=== PATIENT | female | born 1965 | race Caucasian/White ===

== ENCOUNTER 2019-02-09 19:30 | Emergency (ER) | payer OTHER ==
[~2019-02-09] VITALS: Ht 162.6 cm; Wt 75.7 kg
--- NOTE | 2019-02-09 19:58 | NUR ---
[employer] WHEEL SCREW HOLE: Patient to room from lobby at this time.
--- NOTE | 2019-02-09 20:28 | NUR ---
Patient into room, attached to blood pressure and spo2 monitor. Patient reports pain is steadily low in the 2/10 numerical scale range. Answers questions calmly and appropriately. Reports no previous medical issues including anything cardiac in nature. No further signs of SD, no diaphoresis, pain not radiating, no sense of impending doom. Blood pressures wnl and HR 60's. Awaiting orders.
--- NOTE | 2019-02-09 21:27 | NUR ---
RN to bedside, educated on lab results especially the purpose and physiology of troponin. Verbalized understanding. Awaiting phlebotomy and results.
[2019-02-09 21:32] LABS: BASOPHILS # (AUTO) 0.07 x10^3/uL (0-0.1); BASOPHILS % (AUTO) 1 % (0-1); EOSINOPHILS % (AUTO) 1 % (1-7); LYMPHOCYTES # (AUTO) 2.19 x10^3/uL (1-3.4); LYMPHOCYTES % (AUTO) 24 % (22-44); MD NO; MEAN CORPUSCULAR HEMOGLOBIN 30.9 pg (27.0-34.8); MEAN CORPUSCULAR HGB CONC 32.9 g/dL (32.4-35.8); MEAN CORPUSCULAR VOLUME 93.9 fL (80-100); MEAN PLATELET VOLUME 7.9 fL (7.4-10.4); MONOCYTES # (AUTO) 0.58 x10^3/uL (0.2-0.8); MONOCYTES % (AUTO) 6 % (2-9); NEUTROPHILS # (AUTO) 6.15 x10^3/uL (1.8-6.8); NEUTROPHILS % (AUTO) 68 % (42-75); PLATELET COUNT 261 x10^3/uL (130-400); RED BLOOD COUNT 4.44 x10^6/uL (3.82-5.3); RED CELL DISTRIBUTION WIDTH 13.4 % (9.6-15.2)
[2019-02-09 21:44] LABS: ALBUMIN 3.6 g/dL (3.4-5.0); ANION GAP 9 mmol/L (5-15); CALCIUM 8.8 mg/dL (8.5-10.1); CHLORIDE 109 mmol/L (98-107)
[2019-02-09 21:49] LABS: ALANINE AMINOTRANSFERASE 28 U/L (12-78); ALKALINE PHOSPHATASE 68 U/L (45-117); BILIRUBIN,TOTAL 0.4 mg/dL (0.2-1.0); CREATININE 0.87 mg/dL (0.55-1.02); TOTAL PROTEIN 7.2 g/dL (6.4-8.2); TROPONIN I < 0.015 ng/mL (0.000-0.045)
[2019-02-09 23:00] VITALS: BP 115/83
== END 2019-02-09 23:16 | disposition home or self-care (01) ==
LOC: ED 23:00
DX: R07.89 Other chest pain (principal); R42 Dizziness and giddiness; R06.02 Shortness of breath; Z90.710 Acquired absence of both cervix and uterus
CPT/HCPCS: 36415; 71045; 80053; 84484; 85025; 93005; 99284